=== PATIENT | male | born 1995 | race Caucasian/White ===

== ENCOUNTER 2017-01-26 23:36 | Emergency (ER) | payer OTHER ==
[2017-01-27 01:18] VITALS: BP 123/80
[2017-01-27 02:16] LABS: Albumin 4.8 g/dL (3.2-5.2); BUN/Creatinine Ratio 15.1 (8-20); Calcium 9.6 mg/dL (8.6-10.3); EGFR African American 112.4 (>60); EGFR Non-African American 87.4 (>60); Globulin 2.7 g/dL (2-4); Potassium 3.3 mmol/L (3.5-5.0); Total Bilirubin 0.6 mg/dL (0.2-1.0); Total Protein 7.5 g/dL (6.4-8.9)
--- NOTE | 2017-01-27 02:24 | ED ---
Allergic Reaction/Systemic - HPI Summary HPI Summary: 21 male presents accompanied by 2 friends with complaints of a rash and swollen eyelids that began just [employer] after drinking 5 glasses/shots of gin. Patient and friends state he drinks gin often and drinks approximately 4 days a week. He has been drinking often the entire semester while at school. He has never had a reaction like this before. Denies any rash anywhere else on the body, besides his face. Denies any throat swelling, chest pain, itchiness, headache, vision changes, difficulty breathing and abdominal pain. He only came because he was advised to by his friends. Friends state his eyelids no longer look swollen. Also state he forced himself to vomit before arrival to get the alcohol out of his system as he thought it was causing an allergic reaction. No longer nauseous. No complaints at this time. Denies PMHx. No medication or treatment prior to arrival. Is fair skinned and has been in the sun the past couple of days. - History of Current Complaint Chief Complaint: EDAllergicReaction Time Seen by Provider: 01/27/17 01:03 Hx Obtained From: Patient, Family/Mailer Apprentice - friends Onset/Duration: Sudden Onset, Started minutes ago, Still Present, Resolved Timing: Constant Severity Currently: None Pain Intensity: 0 Pain Scale Used: 0-10 Numeric Location: Discrete @ - cheeks/face, eyes Character: Swelling Aggravating Factor(s): Nothing Alleviating Factor(s): Nothing Associated Signs And Symptoms: Positive: Rash - cheeks/forehead and periorbital - Related Hx Possible Reaction To: Other: - alcohol - Allergies/Home Medications Allergies/Adverse Reactions: Allergies Allergy/AdvReac Type Severity Reaction Status Date / Time Penicillins Allergy Mild Hives Verified 01/26/17 23:44 PMH/Surg Hx/FS Hx/Imm Hx Endocrine/Hematology History: Denies: Hx Anemia Cardiovascular History: Denies: Hx Hypertension Respiratory History: Denies: Hx Asthma - Surgical History Surgery Procedure, Year, and Place: none - Immunization History Immunizations Up to Date: Yes Infectious Disease History: No Infectious Disease History: Denies: Traveled Outside the [place] in Last 30 Days - Family History Known Family History: Positive: None - Social History Alcohol Use: Daily Substance Use Type: Reports: None Smoking Status (MU): Never Smoked Tobacco Review of Systems Constitutional: Negative Eyes: Negative ENT: Negative Cardiovascular: Negative Respiratory: Negative Gastrointestinal: Negative Genitourinary: Negative Musculoskeletal: Negative Positive: Rash Neurological: Negative Psychological: Normal All Other Systems Reviewed And Are Negative: Yes Physical Exam Triage Information Reviewed: Yes Vital Signs On Initial Exam: Initial Vitals Temp Pulse Resp BP Pulse Ox 96.9 F 74 14 129/90 100 01/26/17 23:39 01/26/17 23:39 01/26/17 23:39 01/26/17 23:39 01/26/17 23:39 Vital Signs Reviewed: Yes Appearance: Positive: Well-Appearing - laying on stretcher, oriented and smiling , No Pain Distress, Well-Nourished Skin: Positive: Warm, Skin Color Reflects Adequate Perfusion, Dry, Pale - fair davidson individual, Erythema @ - cheeks, forehead and periorbital petechial rash , no swelling noted at this time. no urticaria noted. painless, not raised and no discharge., Other - no jaundice noted. Negative: Soft, Cyanosis @, Diaphoretic, Target Lesions, Scaly Skin/Lesions, Weeping Skin/Lesions Head/Face: Positive: Normal Head/Face Inspection - besides rash on face Eyes: Positive: Normal, EOMI, GEETA, Conjunctiva Clear ENT: Positive: Normal ENT inspection, Hearing grossly normal Dental: Positive: Cervical Lymphadenopathy - recently diagnosed with bronchitis Neck: Positive: Supple, Nontender Respiratory/Lung Sounds: Positive: Clear to Auscultation, Breath Sounds Present Cardiovascular: Positive: Normal, RRR, Pulses are Symmetrical in both Upper and Lower Extremities Abdomen Description: Positive: Nontender, No Organomegaly, Soft. Negative: Distended, Guarding, Hepatomegaly, Splenomegaly Bowel Sounds: Positive: Present Musculoskeletal: Positive: Normal, Strength/ROM Intact Neurological: Positive: Normal, Sensory/Motor Intact, Alert, Oriented to Person Place, Time, CN Intact II-III, Normal Gait Psychiatric: Positive: Normal, Affect/Mood Appropriate - Lucas Coma Scale Best Eye Response: 4 - Spontaneous Best Motor Response: 6 - Obeys Commands Best Verbal Response: 5 - Oriented Diagnostics - Vital Signs Vital Signs Temp Pulse Resp BP Pulse Ox 01/27/17 01:17 97.7 F 80 19 123/80 100 01/26/17 23:42 96.9 F 73 14 128/90 100 01/26/17 23:39 96.9 F 74 14 129/90 100 - Laboratory Lab Results: Lab Results 01/27/17 01/27/17 Range/Units 01:50 01:50 Sodium 139 (133-145) mmol/L Potassium 3.3 L (3.5-5.0) mmol/L Chloride 104 (101-111) mmol/L Carbon Dioxide 24 (22-32) mmol/L Anion Gap 11 (2-11) mmol/L BUN 16 (6-24) mg/dL Creatinine 1.06 (0.67-1.17) mg/dL Est GFR ( Amer) 112.4 (>60) Est GFR (Non-Af Amer) 87.4 (>60) BUN/Creatinine Ratio 15.1 (8-20) Glucose 101 H (70-100) mg/dL Lactic Acid 1.5 (0.5-2.0) mmol/L Calcium 9.6 (8.6-10.3) mg/dL Total Bilirubin 0.60 (0.2-1.0) mg/dL AST 14 (13-39) U/L ALT 12 (7-52) U/L Alkaline Phosphatase 76 (34-104) U/L Total Protein 7.5 (6.4-8.9) g/dL Albumin 4.8 (3.2-5.2) g/dL Globulin 2.7 (2-4) g/dL Albumin/Globulin Ratio 1.8 (1-3) Result Diagrams: 01/27/17 01:50 01/27/17 01:50 Lab Statement: Any lab studies that have been ordered have been reviewed, and results considered in the medical decision making process. Allergic Reaction Course/Dx - Course Course Of Treatment: CBC/CMP ordered to rule out hepatitis or liver failure due to daily alcohol use. all labs were normal. vitals and PE normal besides rash. patient aware of worsening signs and symptoms to watch out for and when to return. possible allergic reaction, benadryl use if develops additional allergic symptoms. follow up with primary care provider. stop alcohol use and drink plenty of water. sunscreen while in sun. no emergent or further evaluation needed at this time. - Diagnoses Differential Diagnosis/HQI/PQRI: Positive: Local Allergic Reaction, Urticaria, Other Provider Diagnoses: Petechial rash - Provider Notifications Patient Care Discussed With: Dr Rojas Discharge - Discharge Plan Condition: Stable Disposition: HOME Patient Education Materials: Acute Rash (ED), Abuse of Alcohol (ED) Referrals: Non Staff,Doctor [Primary Care Provider] - Additional Instructions: Follow up with [facility] and your primary care provider. Recommend to stop drinking alcohol as this may be the cause of your symptoms. Try taking Benadryl if symptoms of swelling/hives return. If symptoms worsen or new symptoms develop please return to ED.
[2017-01-27 02:33] LABS: Hematocrit 45 % (42-52); Hemoglobin 15.6 g/dl (14.0-18.0); Mean Corpuscular HGB Conc 35 g/dl (31-36); Mean Corpuscular Hemoglobin 32 pg (27-31); Mean Corpuscular Volume 92 fL (80-94); Mean Platelet Volume 8 um3 (7.4-10.4); Red Blood Count 4.92 10^6/ul (4.0-5.4); Red Cell Distribution Width 13 % (10.5-15); White Blood Count 8.3 10^3/ul (3.5-10.8)
== END 2017-01-27 02:45 | disposition home or self-care (01) ==
LOC: ED 23:36
DX: A39.0 Meningococcal meningitis (principal); R21 Rash and other nonspecific skin eruption
CPT/HCPCS: 36415; 80053; 83605; 85025; 99281